=== PATIENT | female | born 1955 | race Caucasian/White ===

== ENCOUNTER 2020-10-22 15:52 | Emergency (ER) | payer MEDICARE ==
[~2020-10-22] VITALS: Ht 170.2 cm; Wt 116.8 kg
[~2020-10-22 15:52] MED LIST: ATOR80TA PO; LOP25T PO; NORCO10T PO
[2020-10-22] MEDS ORDERED: BUPIVAcaine 0.5% W/EPI /PF 10ml vial IJ STA (17:21)
[2020-10-22] MEDS ORDERED: normal saline 1000ML IV soln IVB ONE (17:25)
[2020-10-22] MEDS ORDERED: propofol 10mg/ml 20ml vial IV ONE (17:25)
[2020-10-22] MEDS ORDERED: HYDR-3965 PO (18:39)
--- NOTE | 2020-10-22 18:58 | NUR ---
patient resting at this time. no needs. vs wnl
[2020-10-22 19:19] VITALS: BP 138/80
[2020-11-04] MEDS ORDERED: ASPI-1265 PO (11:01)
== END 2020-10-22 19:22 | disposition home or self-care (01) ==
LOC: ER 15:53
DX: S52.501A Unspecified fracture of the lower end of right radius, initial encounter for closed fracture (principal); M25.531 Pain in right wrist; I25.2 Old myocardial infarction; Z95.0 Presence of cardiac pacemaker; Z88.8 Allergy status to other drugs, medicaments and biological substances; Z79.899 Other long term (current) drug therapy; W19.XXXA Unspecified fall, initial encounter; Z91.81 History of falling; Y93.89 Activity, other specified; Y92.89 Other specified places as the place of occurrence of the external cause; Y99.8 Other external cause status
CPT/HCPCS: 25605; 73100; 73110; 94799; 99285; J7030

== ENCOUNTER 2020-11-07 07:43 | Day surgery (SDC) | payer MEDICARE ==
[~2020-11-07] VITALS: Ht 172.7 cm; Wt 117.2 kg
[2020-11-07] VITALS (10 sets, daily range): BP systolic 112–130; BP diastolic 62–86
[~2020-11-07 07:43] MED LIST changes: +ASPI-1265 PO; +DOCUMENT DATE & TIME OF BETA-BLOCKER PO ONE; -NORCO10T PO; +cefazolin/dext.iso 2gm/100ml IV ONE; +famotidine 20mg tablet PO ONE; +ringers solution, lacted 1,000 ML IV SCH
[2020-11-07 09:55] LABS: BASOPHILS % (AUTO) 0.3 % (0-1); EOSINOPHILS # (AUTO) 0.1 X10'3 (0-0.9); EOSINOPHILS % (AUTO) 1.9 % (0-6); LYMPHOCYTES # (AUTO) 1.2 X10'3 (1.1-4.8); LYMPHOCYTES % (AUTO) 23.3 % (21-51); MEAN CORPUSCULAR HEMOGLOBIN 28.7 PG (27.0-31.0); MEAN CORPUSCULAR HGB CONC 32.7 g/dL (33.0-36.5); MEAN CORPUSCULAR VOLUME 87.8 FL (78-98); MEAN PLATELET VOLUME 8.7 FL (7.4-10.4); MONOCYTES # (AUTO) 0.4 X10'3 (0-0.9); MONOCYTES % (AUTO) 7.6 % (2-12); NEUTROPHILS # (AUTO) 3.6 X10'3 (1.8-7.7); NEUTROPHILS % (AUTO) 66.9 % (42-75); PRE OP HEMATOCRIT 40.5 % (35.0-45.0); PRE OP HEMOGLOBIN 13.2 g/dL (12.0-16.0); PRE OP PLATELET COUNT 214 X10'3 (140-440); RED BLOOD COUNT 4.61 X10'6 (4.20-5.60); RED CELL DISTRIBUTION WIDTH 14.9 % (11.5-14.5)
[2020-11-07 10:11] LABS: ALBUMIN 3.1 G/DL (3.4-5.0); ALBUMIN/GLOBULIN RATIO 0.9 (1.1-1.5); ALKALINE PHOSPHATASE 120 IU/L (46-116); BLOOD UREA NITROGEN 13 MG/DL (7-18); BUN/CREATININE RATIO 18.6 (6.6-38.0); CALCIUM 8.4 MG/DL (8.5-10.1); CHLORIDE 110 MMOL/L (99-107); PRE OP ALT 27 U/L (30-65); PRE OP ANION GAP 7 (8-16); PRE OP AST 24 U/L (10-37); PRE OP BILIRUB, TOTAL 1.3 MG/DL (0.0-1.0); PRE OP GLUCOSE 84 MG/DL (70-104); PRE OP POTASSIUM 3.7 MMOL/L (3.4-5.1); PRE OP SODIUM 145 MMOL/L (135-145); TOTAL CARBON DIOXIDE 28.2 MMOL/L (24-32); TOTAL PROTEIN 6.4 G/DL (6.4-8.2); eGFR 84 ML/MIN
[2020-11-07] MEDS ORDERED: propofol inj 20 ML IV ONE (10:16)
[2020-11-07] MEDS ORDERED: ROPIVAcaine 0.5% (5mg/ml) 30ml vial ONE (10:18)
[2020-11-07] MEDS ORDERED: sevoflurane 250ml liquid IH ONE (10:26)
[2020-11-07] MEDS ORDERED: fentaNYL/PF 50MCG/1 ML 2ML syringe ONE (10:33)
[2020-11-07] MEDS ORDERED: midazolam 1 mg/ML 2ml injection ONE (10:33)
[2020-11-07] MEDS ORDERED: morphine 4 MG/ML inj SYRINge IV PRN (11:15)
[2020-11-07] MEDS ORDERED: ringers solution, lacted 1,000 ML IV SCH (11:15)
[2020-11-07] MEDS ORDERED: ondansetron/PF 4mg/2ml inj IV PRN (11:15)
[2020-11-07] MEDS ORDERED: meperidine/PF 25mg/ml syringe IV PRN ×3 (11:15)
[2020-11-07] MEDS ORDERED: morphine 2 MG/ML inj. syringe IV PRN (11:15)
[2020-11-07] MEDS ORDERED: proCHLORperazine 10 MG/2 ml inj IV PRN (11:15)
--- NOTE | 2020-11-07 11:52 | NUR ---
Received from OR via [facility], accompanied by Anesthesiologist DR PIZANO and report given by Anesthesiologist. PT DROWSY, DENIES PAIN, RIGHT HAND/WRIST W/DANYA WRAP COVERING DRSG/INCISION/SPLINT CDI. Addendum: 11/07/20 at 1234 by Zenia Rodriguez RN Amended: Links added.
--- NOTE | 2020-11-07 13:32 | NUR ---
PT UP AND ABLE TO AMBULATE SAFELY. D/C INSTRUCTIONS GIVEN AND GONE OVER W/PT WHO VERBALIZED UNDERSTANDING. PT D/C TO HOME VIA W/C TO PRIVATE VEHICLE W/O INCIDENT. Addendum: 11/07/20 at 1349 by Zenia Rodriguez RN Amended: Links added.
== END 2020-11-07 13:32 | disposition home or self-care (01) ==
LOC: PAS 07:43
PROVIDERS: ATTEND Orthopaedic Surgery Hand Surgery
DX: S52.571A Other intraarticular fracture of lower end of right radius, initial encounter for closed fracture (principal); E11.9 Type 2 diabetes mellitus without complications; I25.2 Old myocardial infarction; I25.10 Atherosclerotic heart disease of native coronary artery without angina pectoris; G89.18 Other acute postprocedural pain; E66.9 Obesity, unspecified; Z68.41 Body mass index [BMI] 40.0-44.9, adult; Z90.49 Acquired absence of other specified parts of digestive tract; Z98.84 Bariatric surgery status; Z90.710 Acquired absence of both cervix and uterus; Z87.891 Personal history of nicotine dependence; Z85.42 Personal history of malignant neoplasm of other parts of uterus; Z95.0 Presence of cardiac pacemaker; Z20.822 Contact with and (suspected) exposure to COVID-19; Z88.5 Allergy status to narcotic agent; Z79.899 Other long term (current) drug therapy; W19.XXXA Unspecified fall, initial encounter; Y93.89 Activity, other specified; Y92.89 Other specified places as the place of occurrence of the external cause; Y99.8 Other external cause status
CPT/HCPCS: 25609; 36415; 64415; 76942; 80053; 82948; 85025; 87635; A6222; C1713; C9803; J2250; J2704; J3010; J7120; Z7506; Z7508; Z7512; A4215; A4565; A4618; A6449; A7000; J2795